=== PATIENT | male | born 1985 | race Two or more races ===

== ENCOUNTER 2017-11-27 10:31 | Inpatient (IN) | payer BC, OTHER ==
[~2017-11-27] VITALS: Ht 175.3 cm; Wt 99.5 kg
[2017-11-27] MEDS ORDERED: KETOROLAC TROMETH 60MG/2ML VIAL IM ONE (11:15)
[2017-11-27] MEDS ORDERED: ONDANSETRON ODT 4 MG TAB PO ONE (11:30)
[2017-11-27] MEDS ORDERED: HYDROcodone-ACET 10/325MG TAB PO ONE (11:30)
[2017-11-27] MEDS ORDERED: SODIUM CHLORIDE 0.9% 1,000 ML IV ONE (12:34)
[2017-11-27] MEDS ORDERED: ONDANSETRON HCL 4 MG/2 ML VIAL IV ONE (12:45)
[2017-11-27] MEDS ORDERED: HYDROmorphone HCL 2 MG/ML VL IV ONE (12:45)
[2017-11-27 13:11] LABS: Basophils # (auto) 0 uL; Basophils % (auto) 0.1 % (0.0-2.0); Eosinophils # (auto) 0 uL; Eosinophils % (auto) 0.1 % (0.0-7.0); Hematocrit 43.9 % (41.0-53.0); Hemoglobin 14.8 g/dL (13.5-17.5); Lymphocytes # (auto) 1.1 uL; Lymphocytes % (auto) 7.8 % (10.0-50.0); Mean Corpuscular Hemoglobin 28.1 pg (28.0-32.0); Mean Corpuscular Hgb Conc. 33.7 g/dL (32.0-36.0); Mean Corpuscular Volume 83.3 fL (80.0-100.0); Monocytes # (auto) 0.4 uL; Monocytes % (auto) 2.8 % (0.0-12.0); Neutrophils # (auto) 12.6 uL; Neutrophils % (auto) 89.2 % (37.0-80.0); Nucleated Red Blood Cells % 0.1 %; Platelet Count (auto) 294 10^3/uL (140-450); Red Blood Cells 5.27 10^6/uL (4.5-5.90); Red Cell Distribution Width 13.5 % (11.8-14.3); White Blood Cell 14.2 10^3/uL (4.4-10.8)
[2017-11-27 13:27] LABS: INR 0.98 (0.9-1.15); Partial Thromboplastin Time 30.3 sec (23.78-33.04); Prothrombin Time 10.5 sec (9.27-12.13)
[2017-11-27 13:33] LABS: Albumin 3.8 g/dL (3.4-5.0); BUN/Creatinine Ratio 18.2; Bilirubin, Total 0.8 mg/dL (0.2-1.0); Calcium 8.5 mg/dL (8.5-10.1); Potassium 3.9 mmol/L (3.5-5.1); Total Protein 8.3 g/dL (6.4-8.2)
[2017-11-27] MEDS ORDERED: PROMETHAZINE HCL 25 MG/ML 1ML IV PRN (13:45)
[2017-11-27] MEDS ORDERED: ACETAMINOPHEN 500 MG TAB PO PRN (13:45)
[2017-11-27] MEDS ORDERED: MORPHINE SULFATE 8mg/ml INJ SDV IV PRN (13:45)
[2017-11-27] MEDS ORDERED: NITROGLYCERIN 0.4 MG SL TAB SL PRN (13:45)
[2017-11-27] MEDS ORDERED: IBUPROFEN 400 MG TAB PO PRN (13:45)
[2017-11-27] MEDS ORDERED: LORazepam 0.5 MG TAB PO PRN (13:45)
[2017-11-27] MEDS ORDERED: KETOROLAC TROMETH 30 MG/ML 1ML VIAL IV PRN (13:45)
[2017-11-27] MEDS ORDERED: cefTRIAXone 1GM/10ml IVPUSH 10 ML IV ONE (13:45)
[2017-11-27 13:57] LABS: Urine Bacteria NONE SEEN /hpf (None Seen); Urine Blood 2+ /uL (Negative); Urine Mucus FEW (None Seen); Urine Specific Gravity 1.016 (1.001-1.035); Urine WBC 4 /hpf (0 - 3)
[2017-11-27] MEDS ORDERED: MANNITOL 20 % (20GM/100ML) 62.5 ML IV ONE (14:15)
[2017-11-27] MEDS ORDERED: FAMOTIDINE 20 MG TAB PO ONE (14:15)
[2017-11-27] MEDS: SODIUM CHLORIDE 0.9% 1,000 ML IV SCH ×2 (14:49→21:26)
[2017-11-27] MEDS: TAMSULOSIN HYDROCHLORIDE 0.4 MG CAP PO SCH (18:00)
[2017-11-27 20:20] VITALS: BP 118/72
[2017-11-27] MEDS: FAMOTIDINE 20 MG TAB PO SCH (21:26)
[2017-11-27 22:00] VITALS: BP 118/72
[2017-11-28 05:00] VITALS: BP 115/65
[2017-11-28] MEDS: SODIUM CHLORIDE 0.9% 1,000 ML IV SCH (05:42)
[2017-11-28 06:56] LABS: Basophils # (auto) 0 uL; Basophils % (auto) 0.2 % (0.0-2.0); Eosinophils # (auto) 0.1 uL; Eosinophils % (auto) 1.1 % (0.0-7.0); Hematocrit 42.2 % (41.0-53.0); Hemoglobin 14.3 g/dL (13.5-17.5); Lymphocytes # (auto) 1.8 uL; Lymphocytes % (auto) 24.8 % (10.0-50.0); Mean Corpuscular Hemoglobin 28.2 pg (28.0-32.0); Mean Corpuscular Hgb Conc. 33.9 g/dL (32.0-36.0); Mean Corpuscular Volume 83.1 fL (80.0-100.0); Monocytes # (auto) 0.5 uL; Monocytes % (auto) 6.3 % (0.0-12.0); Neutrophils # (auto) 4.9 uL; Neutrophils % (auto) 67.6 % (37.0-80.0); Platelet Count (auto) 258 10^3/uL (140-450); Red Blood Cells 5.08 10^6/uL (4.5-5.90); Red Cell Distribution Width 13.7 % (11.8-14.3); White Blood Cell 7.2 10^3/uL (4.4-10.8)
[2017-11-28 08:00] VITALS: BP 155/80
[2017-11-28] MEDS ORDERED: cefTRIAXone 1GM/10ml IVPUSH 10 ML IV SCH (09:00)
[2017-11-28] MEDS: FAMOTIDINE 20 MG TAB PO SCH (09:55)
[2017-11-28] MEDS: TAMSULOSIN HYDROCHLORIDE 0.4 MG CAP PO SCH (09:55)
[2017-11-28 11:00] VITALS: BP 112/72
[2017-11-28 15:40] VITALS: BP 112/72
== END 2017-11-28 16:05 | disposition home or self-care (01) | DRG 694 ==
LOC: ER 10:34 → TELE 10:35 → TELE-WESTW 20:11
PROVIDERS: ADMIT Internal Medicine; ATTEND Internal Medicine
DX: N13.2 Hydronephrosis with renal and ureteral calculous obstruction (principal); E66.9 Obesity, unspecified; D72.829 Elevated white blood cell count, unspecified; Z87.442 Personal history of urinary calculi; Z68.32 Body mass index [BMI] 32.0-32.9, adult
CPT/HCPCS: 36415; 71046; 74176; 80053; 81001; 85025; 85610; 85730; 87086; 96361; 96365; 96372; 96375; J1885; Q0162